=== PATIENT | male | born 1950 | race Hispanic/Latino ===

== ENCOUNTER → 2023-11-22 | Outpatient (REF) | payer MEDICARE ==
[~2023-11-22] MED LIST: IOPAMIDOL 370 MG/ML 100 ML INFUS..BTL INJ ONE
[2023-11-22 11:23] LABS: CREATININE, SERUM 0.86 mg/dL (0.72-1.25)
== END ==
LOC: CT 10:17
PROVIDERS: ATTEND Internal Medicine
DX: K92.1 Melena (principal)
CPT/HCPCS: 36415; 74177; 82565; 84520; Q9967